=== PATIENT | female | born 1955 ===

== ENCOUNTER 2018-07-19 13:09 | Day surgery (SDC) | payer OTHER, SELFPAY ==
[2018-07-19 13:44] VITALS: BMI 21.7
[2018-07-19] MEDS ORDERED: Lidocaine 1% Inj (20ml) IM ONE (15:51)
--- NOTE | 2018-07-19 16:12 | PCM.SURG1 ---
Surgeon's Initial Post Op Note - Surgeon's Notes Surgeon: Daniele Oconnor Roofing Supervisor: none Type of Anesthesia: Local Anesthesia Administered By: Daniele Oconnor Pre-Operative Diagnosis: mass left breast Operative Findings: ángel hard mass, unable to jang with core biopsy devise Post-Operative Diagnosis: mass left breast Operation Performed: incisional biopsy left breast mass, Specimen/Specimens Removed: portion of mass left breast Estimated Blood Loss: EBL {In ML}: 10 Blood Products Given: N/A Drains Used: No Drains Post-Op Condition: Good Date of Surgery/Procedure: 07/19/18 Time of Surgery/Procedure: 16:12
--- NOTE | 2018-07-19 16:18 | CP.SDSHP ---
Same Day Surgery H & P - Allergies Allergies: Allergies No Known Allergies Allergy (Verified 04/11/18 08:21) - Physical Exam Vital Signs: Vital Signs 07/19/18 14:00 Temperature 98.1 F Pulse Rate 74 Respiratory 16 Rate Blood Pressure 140/63 O2 Sat by Pulse 99 Oximetry Short Stay Discharge - Short Stay Discharge Admitting Diagnosis/Reason for Visit: N63 Disposition: HOME/ ROUTINE Referrals: FAMILY PROVIDER,NO [Primary Care Provider] - Follow-[facility]: [facility] Surgical/[facility] clinic Additional Instructions (Diet, Activity): May remove dressing after 2 days Progress Note/Discharge Note with Instructions: Dressing dry and intact, no breast swelling
[2018-07-19 16:33] VITALS: RESP 18
[2018-07-19 18:51] VITALS: BP 132/78; PULSE 76; TEMP 97.8; O2SAT 99
--- NOTE | 2018-07-20 01:39 | OP ---
PROCEDURE DATE: 07/19/2018 SURGEON: Dileep Oconnor MD ANESTHESIA: Local 1% lidocaine. PREOPERATIVE DIAGNOSIS: Mass, left breast. POSTOPERATIVE DIAGNOSIS: Mass, left breast. PROCEDURES: Attempted core biopsy of the left breast mass, incisional biopsy of left breast mass. DESCRIPTION OF OPERATION: With the patient in the supine position, the left breast was prepped and draped in the usual sterile manner. A 5 cm mass was palpable in the upper outer quadrant of the left breast noted to be movable and not fixed to the skin. The skin overlying the lateral portion of this mass was infiltrated with 1% lidocaine and a small incision was made. An attempt was made to pass a John-Cut biopsy needle into the mass; however, the mass was noted to be quite hard and I was unable to pass the John-Cut device into the mass. Additional 1% lidocaine was infiltrated and the incision was enlarged slightly allowing an Allis clamp to be used to grasp the lateral portion of the mass, and using an 11 blade, incisional samples of the mass were excised in a cone-like fashion. The mass itself was noted to be hard and white with minimal vascularity noted. The two specimens were taken and sent for permanent pathology. The operative site was examined for hemostasis and closure was performed with subcuticular sutures of 4-0 Monocryl and Steri-Strips. Dry sterile dressing was applied. The patient tolerated the procedure well and was transferred back to Day Stay in stable condition. Estimated blood loss for the procedure was 10 mL. Dileep Oconnor MD
== END 2018-07-19 18:10 | disposition home or self-care (01) ==
LOC: H.OPSURG 13:09
PROVIDERS: ATTEND Specialist
DX: N63.20 Unspecified lump in the left breast, unspecified quadrant (principal)